=== PATIENT | female | born 1965 | race Caucasian/White ===

== ENCOUNTER → 2021-01-03 12:38 | Outpatient (CLI) | payer OTHER, SELFPAY ==
--- NOTE | 2021-01-03 12:42 | DI.RAD.S_ITS ---
PROCEDURE: FL BARIUM SWALLOW INDICATIONS: Dysphagia, unspecified COMPARISON: None. FINDINGS: Esophageal dysmotility is present. There was spontaneous gastroesophageal reflux to the level of the lower 3rd of the esophagus. There is normal transit of a calibrated barium tablet through the esophagus into the stomach. Morphology: Air-contrast images demonstrate normal mucosal morphology. Single contrast views show no esophageal strictures, extrinsic mass effects, or diverticula. Limited images of the stomach demonstrate normal appearance. IMPRESSION: Esophageal dysmotility and spontaneous gastroesophageal reflux as above. No stricture identified. Dictated by: Lawson Bush M.D. on 01/03/2021 at 15:52 Approved by: Lawson Bush M.D. on 01/03/2021 at 15:53
== END ==
PROVIDERS: PCP Physician Assistant Medical; Referring Provider Internal Medicine Gastroenterology; Visit Provider Internal Medicine Gastroenterology
DX: R13.10 Dysphagia, unspecified (principal); K22.4 Dyskinesia of esophagus; K21.9 Gastro-esophageal reflux disease without esophagitis
CPT/HCPCS: 74220